=== PATIENT | male | born 2000 | race African-American/Black ===

== ENCOUNTER 2020-06-08 18:31 | Emergency (ER) | payer OTHER ==
[2020-06-08] MEDS ORDERED: ONDANSETRON 4 MG/2 ML VIAL IVP STA (18:49)
--- NOTE | 2020-06-08 19:07 | ED Physician Documentation ---
PD HPI ABD PAIN - Stated complaint Stated Complaint: STOMACH PX, VOMITING - Chief complaint Chief Complaint: Abd Pain - History obtained from History obtained from: Patient - History of Present Illness Timing - onset: Today Timing - duration: Days (1) Timing - details: Gradual onset Quality: Aching, Pain Location: LLQ Radiation: No: Chest, , Lower back, Left flank, Left shoulder, Right flank, Right shoulder, Upper back Improved by: Other (nothing) Worsened by: Other (nothing) Associated symptoms: Nausea, Vomiting, Constipation. No: Fever, Hematemesis, Diarrhea, Melena, Hematochezia, Dysuria - Additional information Additional information: Patient states that he was at work on the [employer] today, had emesis x2 and was told to come here for evaluation. No fevers. No chills. No recent travel. No recent antibiotics. Was constipated a week or 2 ago. Occasionally has left lower quadrant abdominal pain. None currently. Review of Systems Constitutional: denies: Fever, Chills Respiratory: denies: Cough GI: reports: Nausea, Vomiting. denies: Diarrhea, Hematemesis, Bloody / black stool Skin: denies: Rash Musculoskeletal: denies: Neck pain, Back pain Neurologic: denies: Headache PD PAST MEDICAL HISTORY - Past Medical History Past Medical History: No - Past Surgical History Past Surgical History: No - Present Medications Home Medications: Ambulatory Orders Medication Instructions Recorded Confirmed Ondansetron Odt [Zofran] 4 mg TL Q6H PRN #10 tablet 06/08/20 - Allergies Allergies/Adverse Reactions: Allergies Allergy/AdvReac Type Severity Reaction Status Date / Time No Known Drug Allergies Allergy Verified 06/08/20 18:43 - Living Situation Living Situation: reports: With family Living Arrangement: reports: At home - Social History Does the pt have substance abuse?: No - Family History Family history: reports: Non contributory PD ED PE NORMAL - Vitals Vital signs reviewed: Yes - General General: Alert and oriented X 3, No acute distress - HEENT HEENT: Moist mucous membranes - Neck Neck: Supple, no meningeal sign - Cardiac Cardiac: RRR, Strong equal pulses - Respiratory Respiratory: No respiratory distress, Clear bilaterally - Abdomen Abdomen: Soft, Non tender, Non distended - Derm Derm: Warm and dry, No rash - Neuro Neuro: Alert and oriented X 3 - Psych Psych: Normal mood, Normal affect Results - Vitals Vitals: Vital Signs - 24 hr 06/08/20 06/08/20 18:39 19:59 Temperature 36.8 C Heart Rate 65 66 Respiratory 18 16 Rate Blood Pressure 132/69 H 122/79 O2 Saturation 98 100 Oxygen O2 Source Room air - Labs Labs: Laboratory Tests 06/08/20 06/08/20 06/08/20 18:58 19:08 19:08 WBC 5.6 RBC 5.21 Hgb 15.8 Hct 43.9 MCV 84.3 MCH 30.3 MCHC 36.0 RDW 12.7 Plt Count 278 MPV 9.6 Neut # (Auto) 3.1 Lymph # (Auto) 1.9 [place] # (Auto) 0.4 Eos # (Auto) 0.1 Baso # (Auto) 0.0 Absolute Nucleated RBC 0.00 Nucleated RBC % 0.0 Sodium 138 Potassium 3.1 L Chloride 100 L Carbon Dioxide 28 Anion Gap 10.0 BUN 17 Creatinine 0.9 Estimated GFR (MDRD) 130 Glucose 122 H Calcium 9.1 Total Bilirubin 1.9 H AST 17 ALT < 10 L Alkaline Phosphatase 88 Total Protein 7.2 Albumin 4.4 Globulin 2.8 Albumin/Globulin Ratio 1.6 Lipase 24 Urine Color YELLOW Urine Clarity CLEAR Urine pH 6.0 Ur Specific [place] 1.025 Urine Protein NEGATIVE Urine Glucose (UA) NEGATIVE Urine Ketones NEGATIVE Urine Occult Blood NEGATIVE Urine Nitrite NEGATIVE Urine Bilirubin NEGATIVE Urine Urobilinogen 1 (NORMAL) Ur Leukocyte Esterase NEGATIVE Ur Microscopic Review NOT INDICATED Urine Culture Comments NOT INDICATED PD MEDICAL DECISION MAKING - ED course Complexity details: reviewed results, re-evaluated patient, considered differential, d/w patient ED course: 20-year-old male with what appears to be a viral syndrome. He is well- appearing, nontoxic. Afebrile. Not dehydrated. No significant lab abnormalities. Tolerating p.o. without difficulty here. 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 Patient counseled regarding signs and symptoms for which I believe and urgent re-evaluation would be necessary. Patient with good understanding of and agreement to plan and is comfortable going home at this time This document was made in part using voice recognition software. While efforts are made to proofread this document, sound alike and grammatical errors may occur. Departure - Departure Disposition: 01 Home, Self Care Clinical Impression: Vomiting Qualifiers: Vomiting type: unspecified Vomiting Intractability: non-intractable Nausea presence: with nausea Qualified Code(s): R11.2 - Nausea with vomiting, unspecified Condition: Good Instructions: ED Nausea Vomiting [place] Prescriptions: Ondansetron Odt [Zofran] 4 mg TL Q6H PRN #10 tablet PRN Reason: Nausea / Vomiting Comments: Return if you worsen. This is likely a viral illness, you will likely develop diarrhea as well. Follow-up with your doctor in 3 days for further care. Discharge Date/Time: 06/08/20 20:00
[2020-06-08 19:16] LABS: BASOPHILS % (AUTO) 0.5 %; EOSINOPHILS # (AUTO) 0.1 10^3/uL (0.0-0.7); EOSINOPHILS % (AUTO) 1.8 %; HGB - HEMOGLOBIN 15.8 g/dL (14.0-18.0); LYMPHOCYTES # (AUTO) 1.9 10^3/uL (1.5-3.5); MEAN CORPUSCULAR HEMOGLOBIN 30.3 pg (27.0-31.0); MEAN CORPUSCULAR VOLUME 84.3 fL (80.0-94.0); MEAN PLATELET VOLUME 9.6 fL (7.4-11.4); MONOCYTES # (AUTO) 0.4 10^3/uL (0.0-1.0); MONOCYTES % (AUTO) 7.9 %; NEUTROPHILS # (AUTO) 3.1 10^3/uL (1.5-6.6); NEUTROPHILS % (AUTO) 55.3 %; PLT - PLATELET COUNT 278 10^3/uL (130-450); RED BLOOD COUNT 5.21 10^6/uL (4.70-6.10); RED CELL DISTRIBUTION WIDTH 12.7 % (12.0-15.0); WHITE BLOOD COUNT 5.6 x10^3/uL (4.8-10.8)
[2020-06-08 19:18] LABS: BILIRUBIN,URINE NEGATIVE (NEGATIVE); GLUCOSE, URINE (UA) NEGATIVE (NEGATIVE); KETONES,URINE (UA) NEGATIVE (NEGATIVE); LEUKOCYTE ESTERASE, URINE NEGATIVE (NEGATIVE); NITRITE,URINE NEGATIVE (NEGATIVE); OCCULT BLOOD,URINE NEGATIVE (NEGATIVE); PROTEIN,URINE NEGATIVE (NEGATIVE); UROBILINOGEN,URINE 1 (NORMAL) E.U./dL (NORMAL)
[2020-06-08 19:30] LABS: ALBUMIN 4.4 g/dL (3.2-5.5); ALBUMIN/GLOBULIN RATIO 1.6 (1.0-2.2); ALKALINE PHOSPHATASE 88 IU/L (42-121); ALT ALANINE AMINOTRANSFERASE < 10 IU/L (10-60); AST ASPARTATE AMINOTRANSFERASE 17 IU/L (10-42); BILIRUBIN,TOTAL 1.9 mg/dL (0.2-1.0); BUN - BLOOD UREA NITROGEN 17 mg/dL (6-20); CALCIUM 9.1 mg/dL (8.5-10.3); CARBON DIOXIDE - CO2 28 mmol/L (21-32); CHLORIDE 100 mmol/L (101-111); CREATININE 0.9 mg/dL (0.6-1.2); GLUCOSE 122 mg/dL (70-100); LIPASE 24 U/L (22-51); SODIUM 138 mmol/L (135-145); TOTAL PROTEIN 7.2 g/dL (6.7-8.2)
[2020-06-08 19:31] LABS: CLARITY,URINE CLEAR (CLEAR)
[2020-06-08 20:00] VITALS: BP 122/79
== END 2020-06-08 20:00 | disposition home or self-care (01) ==
LOC: ED 18:31
DX: R11.2 Nausea with vomiting, unspecified (principal); R10.32 Left lower quadrant pain
CPT/HCPCS: 36415; 80053; 81001; 81003; 83690; 85025; 87086; 96374; 99284

== ENCOUNTER 2020-06-30 07:40 | Emergency (ER) | payer OTHER ==
[2020-06-30] MEDS ORDERED: SODIUM CHLORIDE 0.9% 1,000 ML IV STA (08:00)
[2020-06-30] MEDS ORDERED: KETOROLAC 15 MG/ML VIAL IVP STA (08:00)
[2020-06-30] MEDS ORDERED: ONDANSETRON 4 MG/2 ML VIAL IVP STA (08:00)
[2020-06-30] MEDS ORDERED: MAG HYDROX/AL HYDROX/SIMETH 30 ML UDC PO STA (08:00)
[2020-06-30 08:15] LABS: BASOPHILS % (AUTO) 0.5 %; EOSINOPHILS % (AUTO) 0.7 %; HGB - HEMOGLOBIN 16.5 g/dL (14.0-18.0); LYMPHOCYTES # (AUTO) 1.1 10^3/uL (1.5-3.5); LYMPHOCYTES % (AUTO) 26.2 %; MEAN CORPUSCULAR HEMOGLOBIN 30.2 pg (27.0-31.0); MEAN CORPUSCULAR VOLUME 86.1 fL (80.0-94.0); MEAN PLATELET VOLUME 9.6 fL (7.4-11.4); MONOCYTES # (AUTO) 0.4 10^3/uL (0.0-1.0); MONOCYTES % (AUTO) 8.6 %; NEUTROPHILS # (AUTO) 2.6 10^3/uL (1.5-6.6); NEUTROPHILS % (AUTO) 63.8 %; PLT - PLATELET COUNT 262 10^3/uL (130-450); RED BLOOD COUNT 5.47 10^6/uL (4.70-6.10); RED CELL DISTRIBUTION WIDTH 12.7 % (12.0-15.0); WHITE BLOOD COUNT 4.1 x10^3/uL (4.8-10.8)
[2020-06-30 08:28] LABS: ALBUMIN 4.5 g/dL (3.2-5.5); ALBUMIN/GLOBULIN RATIO 1.5 (1.0-2.2); ALKALINE PHOSPHATASE 77 IU/L (42-121); ALT ALANINE AMINOTRANSFERASE < 10 IU/L (10-60); AST ASPARTATE AMINOTRANSFERASE 18 IU/L (10-42); BILIRUBIN,TOTAL 1.9 mg/dL (0.2-1.0); BUN - BLOOD UREA NITROGEN 10 mg/dL (6-20); CALCIUM 9.7 mg/dL (8.5-10.3); CARBON DIOXIDE - CO2 27 mmol/L (21-32); CHLORIDE 103 mmol/L (101-111); CREATININE 0.9 mg/dL (0.6-1.2); GLUCOSE 91 mg/dL (70-100); LIPASE 22 U/L (22-51); SODIUM 140 mmol/L (135-145); TOTAL PROTEIN 7.5 g/dL (6.7-8.2)
[2020-06-30 08:41] LABS: BILIRUBIN,URINE NEGATIVE (NEGATIVE); GLUCOSE, URINE (UA) NEGATIVE (NEGATIVE); KETONES,URINE (UA) NEGATIVE (NEGATIVE); LEUKOCYTE ESTERASE, URINE NEGATIVE (NEGATIVE); NITRITE,URINE NEGATIVE (NEGATIVE); OCCULT BLOOD,URINE NEGATIVE (NEGATIVE); PROTEIN,URINE NEGATIVE (NEGATIVE); UROBILINOGEN,URINE 0.2 (NORMAL) E.U./dL (NORMAL)
[2020-06-30 08:46] LABS: CLARITY,URINE CLEAR (CLEAR)
[2020-06-30 08:52] VITALS: BP 124/74
--- NOTE | 2020-06-30 08:56 | ED Physician Documentation ---
PD HPI ABD PAIN - Stated complaint Stated Complaint: ABD/BACK PX, NAUSEA - Chief complaint Chief Complaint: Abd Pain - History obtained from History obtained from: Patient - History of Present Illness Timing - onset: How many days ago (2) Timing - duration: Days (2) Timing - details: Gradual onset, Waxing and waning Quality: Cramping, Aching, Pain Location: Epigastric, LUQ, Periumbilical Radiation: Lower back Improved by: Laying still. No: Eating Worsened by: Eating, Moving, Position (lying on left side) Associated symptoms: Nausea, Constipation, Loss of appetite. No: Fever, Vomiting, Diarrhea, Melena Similar symptoms before: No diagnosis (similar symptoms a month ago for couple days, Dx as maybe viral GE. Interval time without pains. Denies recent alcohol, change in diet, new meds, NSAID use.) Review of Systems Constitutional: denies: Fever, Chills, Myalgias Nose: denies: Rhinorrhea / runny nose, Congestion Throat: denies: Sore throat Respiratory: denies: Cough PD PAST MEDICAL HISTORY - Past Medical History Past Medical History: Yes Cardiovascular: None Respiratory: None Neuro: None Endocrine/Autoimmune: None GI: Chronic constipation : None HEENT: None Psych: None Musculoskeletal: None Derm: None - Past Surgical History Past Surgical History: No - Present Medications Home Medications: Ambulatory Orders Medication Instructions Recorded Confirmed Docusate Sodium 100 mg PO DAILY #15 capsule 06/30/20 Famotidine 20 mg PO DAILY #30 tablet 06/30/20 Ondansetron Odt [Zofran] 4 mg TL Q6H PRN #10 tablet 06/30/20 - Allergies Allergies/Adverse Reactions: Allergies Allergy/AdvReac Type Severity Reaction Status Date / Time No Known Drug Allergies Allergy Verified 06/30/20 07:56 - Social History Does the pt smoke?: No Smoking Status: Never smoker Does the pt drink ETOH?: No Does the pt have substance abuse?: No - Immunizations Immunizations are current?: Yes - POLST Patient has POLST: No PD ED PE NORMAL - Vitals Vital signs reviewed: Yes - General General: Alert and oriented X 3, No acute distress, Well developed/nourished - HEENT HEENT: Pharynx benign - Neck Neck: Supple, no meningeal sign, No adenopathy - Cardiac Cardiac: RRR, No murmur - Respiratory Respiratory: Clear bilaterally - Abdomen Abdomen: Normal bowel sounds, Soft, Non distended, No organomegaly, Other (some tenderness left abd without guarding nor percussion tender. Some fullness along left descending colon area. Some tender epigastric area. ) Results - Vitals Vitals: Oxygen O2 Source Room air - Labs Labs: Laboratory Tests 06/30/20 06/30/20 06/30/20 08:08 08:08 08:20 WBC 4.1 L RBC 5.47 Hgb 16.5 Hct 47.1 MCV 86.1 MCH 30.2 MCHC 35.0 RDW 12.7 Plt Count 262 MPV 9.6 Neut # (Auto) 2.6 Lymph # (Auto) 1.1 L [place] # (Auto) 0.4 Eos # (Auto) 0.0 Baso # (Auto) 0.0 Absolute Nucleated RBC 0.00 Nucleated RBC % 0.0 Sodium 140 Potassium 3.7 Chloride 103 Carbon Dioxide 27 Anion Gap 10.0 BUN 10 Creatinine 0.9 Estimated GFR (MDRD) 130 Glucose 91 Calcium 9.7 Total Bilirubin 1.9 H AST 18 ALT < 10 L Alkaline Phosphatase 77 Total Protein 7.5 Albumin 4.5 Globulin 3.0 Albumin/Globulin Ratio 1.5 Lipase 22 Urine Color YELLOW Urine Clarity CLEAR Urine pH 7.0 Ur Specific [place] 1.010 Urine Protein NEGATIVE Urine Glucose (UA) NEGATIVE Urine Ketones NEGATIVE Urine Occult Blood NEGATIVE Urine Nitrite NEGATIVE Urine Bilirubin NEGATIVE Urine Urobilinogen 0.2 (NORMAL) Ur Leukocyte Esterase NEGATIVE Ur Microscopic Review NOT INDICATED Urine Culture Comments NOT INDICATED PD MEDICAL DECISION MAKING - ED course Complexity details: reviewed results, re-evaluated patient (feeling better), considered differential (not concerning for appy nor GB at this point. Seems left sided, with some fullness, so possible constipation. Also some pain with eating and better with antacid. ), d/w patient Departure - Departure Disposition: 01 Home, Self Care Clinical Impression: Left sided abdominal pain, Nausea Condition: Stable Record reviewed to determine appropriate education?: Yes Instructions: ED Abdominal Pain Unkn Cause Follow-Up: [facility] [Provider Group] Prescriptions: Docusate Sodium 100 mg PO DAILY #15 capsule Famotidine 20 mg PO DAILY #30 tablet Ondansetron Odt [Zofran] 4 mg TL Q6H PRN #10 tablet PRN Reason: Nausea / Vomiting Comments: There may be some stomach irritation (gastritis) which can be food related or sometimes illness. The location and character of your pain does not suggest appendicitis or gallbladder or pancreas problems. Your blood tests are normal here. We will treat this with acid reducing medicine of famotidine daily for the next week or 2. Also stool softener docusate daily for the next week at least for regular bowel movements. Add Tylenol if needed for pains and ondansetron if needed for nausea. Do not use any ibuprofen or Aleve as this could further irritate your stomach. Off work today. Follow-up with your primary if not improved in the next day or 2. Forms: Activity restrictions Discharge Date/Time: 06/30/20 09:29
== END 2020-06-30 09:29 | disposition home or self-care (01) ==
LOC: ED 07:40
DX: R10.12 Left upper quadrant pain (principal); R11.0 Nausea
CPT/HCPCS: 36415; 80053; 81003; 83690; 85025; 96361; 96374; 99283; 99284; A9270; 81001; 87086

== ENCOUNTER 2020-08-20 08:55 | Emergency (ER) | payer OTHER ==
[2020-08-20] MEDS ORDERED: LIDOCAINE 1% 2 ML VIAL MC ONE (09:25)
[2020-08-20] MEDS ORDERED: cefTRIAXone 1 GM VIAL IM STA (09:25)
[2020-08-20] MEDS ORDERED: DOXYCYCLINE 100 MG TABLET PO STA (09:25)
--- NOTE | 2020-08-20 09:28 | ED Physician Documentation ---
History of Present Illness - Stated complaint Stated Complaint: MALE G - Chief complaint Chief Complaint: General - History obtained from History obtained from: Patient - History of Present Illness Timing: Yesterday Pain level max: 4 Pain level now: 3 - Additonal information Additional information: 20-year-old male presents to the emergency department stating that he has had a burning with urination for the past 24 hours. States he has had clear/brown discharge. Has swelling to his lymph nodes as well. Denies any changes in sexual partners over the past 5 months. He is here with his girlfriend. Worse with urination, nothing makes it better. Review of Systems Constitutional: denies: Fever, Chills Ears: denies: Ear pain Respiratory: denies: Cough GI: denies: Nausea, Vomiting, Diarrhea : reports: Dysuria Skin: denies: Rash Musculoskeletal: denies: Neck pain, Back pain Neurologic: denies: Headache PD PAST MEDICAL HISTORY - Past Medical History Cardiovascular: None Respiratory: None Neuro: None Endocrine/Autoimmune: None GI: Chronic constipation : None HEENT: None Psych: None Musculoskeletal: None Derm: None - Past Surgical History Past Surgical History: No - Present Medications Home Medications: Ambulatory Orders Medication Instructions Recorded Confirmed Docusate Sodium 100 mg PO DAILY #15 capsule 06/30/20 Famotidine 20 mg PO DAILY #30 tablet 06/30/20 Ondansetron Odt [Zofran] 4 mg TL Q6H PRN #10 tablet 06/30/20 Doxycycline Hyclate 100 mg PO BID #28 tablet 08/20/20 - Allergies Allergies/Adverse Reactions: Allergies Allergy/AdvReac Type Severity Reaction Status Date / Time No Known Drug Allergies Allergy Verified 08/20/20 09:04 - Social History Does the pt smoke?: No Smoking Status: Never smoker Does the pt drink ETOH?: No Does the pt have substance abuse?: No - Immunizations Immunizations are current?: Yes - POLST Patient has POLST: No PD ED PE NORMAL - Vitals Vital signs reviewed: Yes - General General: Alert and oriented X 3, No acute distress - HEENT HEENT: Moist mucous membranes - Neck Neck: Supple, no meningeal sign - Abdomen Abdomen: Soft, Non tender, Non distended - Male Male : Other (Bilateral inguinal lymphadenopathy. Mild tenderness. Clear d ischarge from the penis. Normal scrotal exam. Normal testicular exam. No lesions.) - Derm Derm: Warm and dry - Neuro Neuro: Alert and oriented X 3 Results - Vitals Vitals: Vital Signs - 24 hr 08/20/20 09:00 Temperature 36.7 C Heart Rate 101 H Respiratory 16 Rate Blood Pressure 142/77 H O2 Saturation 99 Oxygen O2 Source Room air PD MEDICAL DECISION MAKING - ED course Complexity details: reviewed results, re-evaluated patient, considered differential, d/w patient ED course: Exam and history are concerning for chlamydia. We will treat with doxycycline and Rocephin. Testing was sent. [place] testing. Patient counseled regarding signs and symptoms for which I believe and urgent re-evaluation would be necessary. Patient with good understanding of and agreement to plan and is comfortable going home at this time This document was made in part using voice recognition software. While efforts are made to proofread this document, sound alike and grammatical errors may occur. Departure - Departure Disposition: 01 Home, Self Care Clinical Impression: Urethritis Condition: Good Instructions: ED STD Male Treated, ED Urethritis Infec Vs Inflam Male Follow-Up: your,doctor in 1 week if not better [Other] Prescriptions: Doxycycline Hyclate 100 mg PO BID #28 tablet Comments: Take all antibiotics until gone. Return f you worsen. Your test results should be back within approximately 2 days. You will receive a phone call if either is positive. You were treated for gonorrhea and chlamydia today. If you are positive, your partners will need to be tested and treated as well. Use condoms for sexual activity.
[2020-08-20 09:41] LABS: BILIRUBIN,URINE NEGATIVE (NEGATIVE); GLUCOSE, URINE (UA) NEGATIVE (NEGATIVE); KETONES,URINE (UA) NEGATIVE (NEGATIVE); LEUKOCYTE ESTERASE, URINE MODERATE (NEGATIVE); NITRITE,URINE NEGATIVE (NEGATIVE); OCCULT BLOOD,URINE MODERATE (NEGATIVE); PROTEIN,URINE TRACE mg/dL (NEGATIVE); UROBILINOGEN,URINE 0.2 (NORMAL) E.U./dL (NORMAL)
[2020-08-20 09:44] LABS: CLARITY,URINE CLOUDY (CLEAR)
[2020-08-20 10:01] LABS: BACTERIA,URINE None Seen /HPF (None Seen); RBC,URINE TNTC /HPF (0-5); SQUAMOUS EPITHELIAL CELL,UR NONE SEEN (<= Few); WBC CLUMPS,URINE PRESENT
[2020-08-20 10:07] VITALS: BP 120/70
== END 2020-08-20 10:08 | disposition home or self-care (01) ==
LOC: ED 08:55
DX: N34.2 Other urethritis (principal)
CPT/HCPCS: 81001; 87086; 87491; 87591; 96372; 99283; 99284; A9270; 81003; 87661

== ENCOUNTER 2020-10-22 11:05 | Emergency (ER) | payer OTHER ==
[2020-10-22 11:14] VITALS: BP 115/74
--- NOTE | 2020-10-22 11:33 | ED Physician Documentation ---
History of Present Illness - Stated complaint Stated Complaint: NAUSEA,DOWNS - Chief complaint Chief Complaint: General - History obtained from History obtained from: Patient - Additonal information Additional information: Pt comes to the ED for migraine with nausea, with similar sx to those he has had before. The pt states he really does not want treatment, but needs a work note because he missed work today because of the sx. No fevers/chills. No head injury. Nausea and headache are now better than earlier today. Review of Systems Ten Systems: 10 systems reviewed and negative Constitutional: reports: Reviewed and negative Eyes: reports: Reviewed and negative Ears: reports: Reviewed and negative Nose: reports: Reviewed and negative Throat: reports: Reviewed and negative Cardiac: reports: Reviewed and negative Respiratory: reports: Reviewed and negative GI: reports: Nausea. denies: Vomiting : reports: Reviewed and negative Skin: reports: Reviewed and negative Musculoskeletal: reports: Reviewed and negative Neurologic: reports: Headache. denies: Head injury Psychiatric: reports: Reviewed and negative Endocrine: reports: Reviewed and negative Immunocompromised: reports: Reviewed and negative PD PAST MEDICAL HISTORY - Past Medical History Cardiovascular: None Respiratory: None Neuro: None Endocrine/Autoimmune: None GI: Chronic constipation : None HEENT: None Psych: None Musculoskeletal: None Derm: None - Past Surgical History Past Surgical History: No - Present Medications Home Medications: Ambulatory Orders Medication Instructions Recorded Confirmed No Known Home Medications 10/22/20 10/22/20 - Allergies Allergies/Adverse Reactions: Allergies Allergy/AdvReac Type Severity Reaction Status Date / Time No Known Drug Allergies Allergy Verified 10/22/20 11:15 - Social History Does the pt smoke?: No Smoking Status: Never smoker Does the pt drink ETOH?: No Does the pt have substance abuse?: No - Immunizations Immunizations are current?: Yes - POLST Patient has POLST: No PD ED PE NORMAL - Vitals Vital signs reviewed: Yes - General General: Alert and oriented X 3, No acute distress - HEENT HEENT: Atraumatic, PERRL, EOMI, Moist mucous membranes - Neck Neck: Supple, no meningeal sign - Cardiac Cardiac: RRR, No murmur - Respiratory Respiratory: No respiratory distress, Clear bilaterally - Abdomen Abdomen: Soft, Non tender, Non distended - Derm Derm: Normal color, Warm and dry, No rash - Extremities Extremities: No deformity - Neuro Neuro: Alert and oriented X 3, Other (Grossly intact) - Psych Psych: Normal mood, Normal affect Results - Vitals Vitals: Oxygen O2 Source Room air PD MEDICAL DECISION MAKING - ED course Complexity details: considered differential, d/w patient ED course: Pt well-appearing and not desirous of further treatment or work-up, and none is emergently indicated. Work note and usual indications for return given. Departure - Departure Disposition: Home, Self Care Clinical Impression: Migraine Qualifiers: Migraine type: without aura Status migrainosus presence: without status migrainosus Intractability: not intractable Qualified Code(s): G43.009 - Migraine without aura, not intractable, without status migrainosus Condition: Stable Instructions: ED Headache Migraine Forms: Activity restrictions Discharge Date/Time: 10/22/20 11:38
== END 2020-10-22 11:38 | disposition home or self-care (01) ==
LOC: ED 11:05
DX: G43.909 Migraine, unspecified, not intractable, without status migrainosus (principal)
CPT/HCPCS: 99282

== ENCOUNTER 2020-11-29 23:59 | Emergency (ER) | payer OTHER ==
--- NOTE | 2020-11-30 00:18 | ED Physician Documentation ---
PD HPI ABD PAIN - Stated complaint Stated Complaint: N/V/ABD PX - Chief complaint Chief Complaint: Abd Pain - History obtained from History obtained from: Patient - History of Present Illness Timing - onset: How many hours ago (2-3) Timing - duration: Hours Timing - details: Abrupt onset, Waxing and waning (improving) Pain level max: 3 Pain level now: 0 Quality: Pain Location: LUQ Improved by: Other (nothing) Worsened by: Other (no exacerbating factors) Associated symptoms: Nausea, Vomiting. No: Fever, Diarrhea, Constipation Similar symptoms before: Has not had sx before Recently seen: Not recently seen - Additional information Additional information: patient woke from a nap approximately 9:45 PM tonight for work, developed nausea and vomiting. This continued on the way to work (lives and works on [employer]). Initially the n/v was associated with LUQ pain but this has resolved. He says she does not get reflux/heartburn, does not drink alcohol. Review of Systems Constitutional: denies: Fever, Chills, Sweats Cardiac: reports: Reviewed and negative Respiratory: reports: Reviewed and negative GI: reports: Abdominal Pain, Nausea, Vomiting. denies: Abdominal Swelling, Constipation, Diarrhea, Hematemesis, Bloody / black stool : denies: Dysuria, Frequency PD PAST MEDICAL HISTORY - Past Medical History Cardiovascular: None Respiratory: None Neuro: None Endocrine/Autoimmune: None GI: Chronic constipation : None HEENT: None Psych: None Musculoskeletal: None Derm: None - Past Surgical History Past Surgical History: No - Present Medications Home Medications: Ambulatory Orders Medication Instructions Recorded Confirmed Ondansetron Odt [Zofran Odt] 4 mg TL Q6H PRN #10 11/30/20 - Allergies Allergies/Adverse Reactions: Allergies Allergy/AdvReac Type Severity Reaction Status Date / Time No Known Drug Allergies Allergy Verified 11/30/20 00:01 - Social History Does the pt smoke?: No Smoking Status: Never smoker Does the pt drink ETOH?: No Does the pt have substance abuse?: No - Immunizations Immunizations are current?: Yes - POLST Patient has POLST: No PD ED PE NORMAL - Vitals Vital signs reviewed: Yes - General General: Alert and oriented X 3, No acute distress, Well developed/nourished - HEENT HEENT: Moist mucous membranes - Neck Neck: Supple, no meningeal sign - Cardiac Cardiac: RRR, No murmur - Respiratory Respiratory: No respiratory distress, Clear bilaterally - Abdomen Abdomen: Soft, Non distended, Other (mild LUQ TTP without guarding, rebound, or palpable mass) - Back Back: No CVA TTP Results - Vitals Vitals: Vital Signs - 24 hr 11/30/20 11/30/20 00:01 01:41 Temperature 36.6 C 36.3 C L Heart Rate 55 L 52 L Respiratory 16 16 Rate Blood Pressure 109/65 118/54 L O2 Saturation 100 100 Oxygen O2 Source Room air - Labs Labs: Laboratory Tests 11/30/20 11/30/20 00:18 00:18 WBC 4.0 L RBC 5.22 Hgb 15.6 Hct 45.6 MCV 87.4 MCH 29.9 MCHC 34.2 RDW 12.6 Plt Count 283 MPV 9.9 Neut # (Auto) 2.1 Lymph # (Auto) 1.4 L [place] # (Auto) 0.3 Eos # (Auto) 0.1 Baso # (Auto) 0.0 Absolute Nucleated RBC 0.00 Nucleated RBC % 0.0 Sodium 138 Potassium 3.7 Chloride 103 Carbon Dioxide 26 Anion Gap 9.0 BUN 14 Creatinine 0.8 Estimated GFR (MDRD) 149 Glucose 102 H Calcium 8.8 Total Bilirubin 1.3 H AST 20 ALT < 10 L Alkaline Phosphatase 78 Total Protein 7.0 Albumin 4.1 Globulin 2.9 Albumin/Globulin Ratio 1.4 Lipase 25 PD MEDICAL DECISION MAKING - ED course Complexity details: reviewed results, re-evaluated patient, considered differential, d/w patient ED course: On reevaluation after IV fluids and IV zofran, he is sleeping, easily awakens to voice and reports feeling much improved. Results d/w patient, noting a mildly low WBC count; I advised him that this is not concerning at this time but that he should inform his primary care provider about this result, as they might recommend further testing. Tonight's H+P and test results do not suggest an emergent process. Departure - Departure Disposition: 01 Home, Self Care Clinical Impression: Vomiting Condition: Good Instructions: ED Nausea Vomiting Follow-Up: [facility] [Provider Group] Prescriptions: Ondansetron Odt [Zofran Odt] 4 mg TL Q6H PRN #10 PRN Reason: Nausea / Vomiting Discharge Date/Time: 11/30/20 01:47
[2020-11-30] MEDS ORDERED: ONDANSETRON 4 MG/2 ML VIAL IVP STA (00:33)
[2020-11-30] MEDS ORDERED: SODIUM CHLORIDE 0.9% 1,000 ML IV STA (00:33)
[2020-11-30 00:45] LABS: BASOPHILS % (AUTO) 0.3 %; EOSINOPHILS # (AUTO) 0.1 10^3/uL (0.0-0.7); EOSINOPHILS % (AUTO) 3.3 %; HCT - HEMATOCRIT 45.6 % (42.0-52.0); HGB - HEMOGLOBIN 15.6 g/dL (14.0-18.0); LYMPHOCYTES # (AUTO) 1.4 10^3/uL (1.5-3.5); LYMPHOCYTES % (AUTO) 35.3 %; MEAN CORPUSCULAR HEMOGLOBIN 29.9 pg (27.0-31.0); MEAN CORPUSCULAR HGB CONC 34.2 g/dL (32.0-36.0); MEAN CORPUSCULAR VOLUME 87.4 fL (80.0-94.0); MEAN PLATELET VOLUME 9.9 fL (7.4-11.4); MONOCYTES # (AUTO) 0.3 10^3/uL (0.0-1.0); MONOCYTES % (AUTO) 8.5 %; NEUTROPHILS # (AUTO) 2.1 10^3/uL (1.5-6.6); NEUTROPHILS % (AUTO) 52.3 %; PLT - PLATELET COUNT 283 10^3/uL (130-450); RED BLOOD COUNT 5.22 10^6/uL (4.70-6.10); RED CELL DISTRIBUTION WIDTH 12.6 % (12.0-15.0)
[2020-11-30 00:54] LABS: ALBUMIN 4.1 g/dL (3.2-5.5); ALBUMIN/GLOBULIN RATIO 1.4 (1.0-2.2); ALKALINE PHOSPHATASE 78 IU/L (42-121); ALT ALANINE AMINOTRANSFERASE < 10 IU/L (10-60); AST ASPARTATE AMINOTRANSFERASE 20 IU/L (10-42); BILIRUBIN,TOTAL 1.3 mg/dL (0.2-1.0); BUN - BLOOD UREA NITROGEN 14 mg/dL (6-20); CALCIUM 8.8 mg/dL (8.5-10.3); CARBON DIOXIDE - CO2 26 mmol/L (21-32); CHLORIDE 103 mmol/L (101-111); CREATININE 0.8 mg/dL (0.6-1.2); GFR - MDRD 149 (>89); GLUCOSE 102 mg/dL (70-100); LIPASE 25 U/L (22-51); POTASSIUM 3.7 mmol/L (3.5-5.0); SODIUM 138 mmol/L (135-145)
[2020-11-30 01:43] VITALS: BP 118/54
== END 2020-11-30 01:47 | disposition home or self-care (01) ==
LOC: ED 23:59
DX: R11.2 Nausea with vomiting, unspecified (principal)
CPT/HCPCS: 36415; 80053; 83690; 85025; 96361; 96374; 99284

== ENCOUNTER 2020-12-30 08:35 | Emergency (ER) | payer OTHER ==
[2020-12-30 08:51] VITALS: BP 128/90
--- NOTE | 2020-12-30 09:40 | ED Physician Documentation ---
PD HPI LOWER EXT INJURY - Stated complaint Stated Complaint: LFT FOOT PX - Chief complaint Chief Complaint: Ext Problem - History obtained from History obtained from: Patient - History of Present Illness PD HPI LOW EXT INJURY LOCATION: Left, Foot (plantar aspect) Type of injury: No: Fall, Twist Where injury occurred: Other (he was walking slightly uneven ground and later sole started hurting. Hurting more today with walking and palpation.) Timing - onset: Yesterday Timing - details: Abrupt onset (onset without noted injury of plantar pain with walking and palpation. Had similar in boot camp a year ago and treated with NSAIDs and cushioned sole for boot. Took awhile to improve, per patient, and d oes bother him a little at times after working out or walking uneven ground. Hurting much again.), Waxing and waning Associated symptoms: No: Weakness, Numbness, Swelling, Discolored Similar symptoms before: Diagnosis (plantar fasciitis, likely, or at least treated like that.) Recently seen: Not recently seen Review of Systems Constitutional: denies: Fever, Chills Skin: denies: Rash, Lesions Neurologic: denies: Focal weakness, Numbness PD PAST MEDICAL HISTORY - Past Medical History Past Medical History: No Cardiovascular: None Respiratory: None Neuro: None Endocrine/Autoimmune: None GI: Chronic constipation : None HEENT: None Psych: None Musculoskeletal: None Derm: None - Past Surgical History Past Surgical History: No General: Hiatal hernia repair HEENT: Myringotomy (tubes) - Present Medications Home Medications: Ambulatory Orders Medication Instructions Recorded Confirmed Ibuprofen [Motrin] 600 mg PO TID PRN #25 tab 12/30/20 - Allergies Allergies/Adverse Reactions: Allergies Allergy/AdvReac Type Severity Reaction Status Date / Time No Known Drug Allergies Allergy Verified 12/30/20 08:51 - Social History Does the pt smoke?: No Smoking Status: Never smoker Does the pt drink ETOH?: No Does the pt have substance abuse?: No - Immunizations Immunizations are current?: Yes - POLST Patient has POLST: No PD ED PE NORMAL - Vitals Vital signs reviewed: Yes - General General: Alert and oriented X 3, No acute distress, Well developed/nourished - Derm Derm: Normal color, Warm and dry, No rash - Extremities Extremities: Other (bottom of left high speed warper tender distal to calcaneus, without skin sores, redness, nor swelling. Achilles not tender. Foot hurts with passive dorsiflexion stretch. ) - Neuro Neuro: No motor deficit, No sensory deficit Results - Vitals Vitals: Oxygen O2 Source Room air - Rads (name of study) left foot Radiology: Prelim report reviewed (no spurs nor bony lesions), See rad report PD MEDICAL DECISION MAKING - ED course Complexity details: considered differential (seems c/w plantar fasciitis.), d/w patient Departure - Departure Disposition: 01 Home, Self Care Clinical Impression: Plantar fasciitis of left foot Condition: Stable Record reviewed to determine appropriate education?: Yes Instructions: ED Plantar Fasciitis Follow-Up: ROXY Polk [Provider Group] Prescriptions: Ibuprofen [Motrin] 600 mg PO TID PRN #25 tab PRN Reason: Pain Comments: 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 This is to lift the heel very slightly and change the tension on the bottom of the foot and plantar fascia. Anti-inflammatories 3 times a day with food for the next week. To that add Tylenol if needed for pain. Activity modification with no wearing of the boots but an easier on and off sneaker along with the heel lift. No prolonged standing walking or running. No weight lifting or lifting as that strains on the bottom of the foot. Follow-up with your primary care early next week for further treatment. Forms: Activity restrictions Discharge Date/Time: 12/30/20 10:25
--- NOTE | 2020-12-30 09:45 | XRAY Report ---
PROCEDURE: Foot 3 View LT INDICATIONS: Trauma TECHNIQUE: 3 views of the foot were acquired. COMPARISON: None FINDINGS: Bones: No fractures or dislocations. No suspicious bony lesions. Soft tissues: No tibiotalar joint effusion. Achilles tendon appears normal. IMPRESSION: Source of pain is not seen. Reviewed by: Luke Wu MD on 12/30/2020 8:43 AM [facility] Approved by: Luke Wu MD on 12/30/2020 8:43 AM [facility] Station ID: [id number]
[2020-12-30] MEDS ORDERED: ACETAMINOPHEN 325 MG TABLET PO STA (09:58)
[2020-12-30] MEDS ORDERED: IBUPROFEN 600 MG TABLET PO STA (09:58)
== END 2020-12-30 10:25 | disposition home or self-care (01) ==
LOC: ED 08:35
DX: M72.2 Plantar fascial fibromatosis (principal)
CPT/HCPCS: 73630; 99283; A9270

== ENCOUNTER 2021-02-23 18:27 | Emergency (ER) | payer OTHER ==
--- NOTE | 2021-02-23 18:54 | ED Physician Documentation ---
History of Present Illness - Stated complaint Stated Complaint: BILAT FOOT PX - Chief complaint Chief Complaint: Ext Problem - History obtained from History obtained from: Patient - History of Present Illness Timing: Other (3 months ago) Pain level max: 4 Pain level now: 4 - Additonal information Additional information: 20-year-old male presents to the emergency department stating that he has bilateral foot pain ongoing for the past several months. Worse with walking, better with rest. Has been diagnosed with plantar fasciitis in the past. [place] Is not currently taking any medications for this. No fevers. No chills. No trauma. Review of Systems Constitutional: denies: Fever, Chills Musculoskeletal: denies: Neck pain, Back pain PD PAST MEDICAL HISTORY - Past Medical History Past Medical History: No Cardiovascular: None Respiratory: None Neuro: None Endocrine/Autoimmune: None GI: Chronic constipation : None HEENT: None Psych: None Musculoskeletal: None Derm: None - Past Surgical History Past Surgical History: No General: Hiatal hernia repair HEENT: Myringotomy (tubes) - Present Medications Home Medications: Ambulatory Orders Medication Instructions Recorded Confirmed Meloxicam [Mobic] 7.5 mg PO BID PRN #20 tablet 02/23/21 - Allergies Allergies/Adverse Reactions: Allergies Allergy/AdvReac Type Severity Reaction Status Date / Time No Known Drug Allergies Allergy Verified 02/23/21 18:36 - Social History Does the pt smoke?: No Smoking Status: Never smoker Does the pt drink ETOH?: No Does the pt have substance abuse?: No - Immunizations Immunizations are current?: Yes - POLST Patient has POLST: No PD ED PE NORMAL - Vitals Vital signs reviewed: Yes - General General: Alert and oriented X 3, No acute distress - HEENT HEENT: Moist mucous membranes - Neck Neck: Supple, no meningeal sign - Derm Derm: Warm and dry - Extremities Extremities: Other (Patient has low arches of both feet. There is no tenderness on examination. Does have pain with extension of the toes. Neurovascular intact. Otherwise normal exam of the bilateral feet and lower extremities) - Neuro Neuro: Alert and oriented X 3 - Psych Psych: Normal mood, Normal affect Results - Vitals Vitals: Vital Signs - 24 hr 02/23/21 02/23/21 18:36 19:28 Temperature 36.9 C 37.2 C Heart Rate 102 H 83 Respiratory 16 16 Rate Blood Pressure 139/86 H 134/93 H O2 Saturation 99 100 Oxygen O2 Source Room air PD MEDICAL DECISION MAKING - ED course Complexity details: considered differential, d/w patient ED course: Patient with what appears to be plantar fasciitis. Recommend arch support and follow-up with podiatry. Recommend that he follow-up with his PCM for further care. Patient counseled regarding signs and symptoms for which I believe and urgent re-evaluation would be necessary. Patient with good understanding of and agreement to plan and is comfortable going home at this time This document was made in part using voice recognition software. While efforts are made to proofread this document, sound alike and grammatical errors may occur. Departure - Departure Disposition: 01 Home, Self Care Clinical Impression: Plantar fasciitis, bilateral Condition: Good Instructions: ED Plantar Fasciitis Follow-Up: Elena Najera DPM [Provider Admit Priv/Credential] - Jessica Romero DPM [Physician No Access] - TAMI EDEN DPM [Physician No Access] - Tony Hi DPM [Physician No Access] - your,doctor in 1 week [Other] Prescriptions: Meloxicam [Mobic] 7.5 mg PO BID PRN #20 tablet PRN Reason: Pain Comments: You should follow-up with the software design manager for further care. You should have insoles that have arch support to help support your arches as your feet appear flat today. You should also perform stretching exercises to help with the plantar fasciitis. Rolling your feet over frozen water bottles can help as well. Follow-up with your command regarding your service restrictions. Discharge Date/Time: 02/23/21 19:28
[2021-02-23 19:28] VITALS: BP 134/93
== END 2021-02-23 19:28 | disposition home or self-care (01) ==
LOC: ED 18:27
DX: M72.2 Plantar fascial fibromatosis (principal)
CPT/HCPCS: 99282; 99283